=== PATIENT | female | born 1990 ===

== ENCOUNTER 2024-03-02 17:08 | Emergency (ER) | payer OTHER ==
[~2024-03-02] VITALS: Ht 188 cm; Wt 107.9 kg
[2024-03-02] MEDS ORDERED: diphenhydrAMINE HCL 50 MG/ML VIAL IM ONE (17:45)
[2024-03-02] MEDS ORDERED: HALOPERIDOL LACTATE 5 MG/ML VIAL IM ONE (17:45)
[2024-03-02] MEDS ORDERED: LORazepam 2 MG/ML VIAL IM ONE (17:45)
[2024-03-02 18:10] LABS: BASOPHILS 0.6 % (0-2); EOSINOPHILS 0.9 % (0-6); HEMATOCRIT 39.7 % (35.0-50.0); HEMOGLOBIN 12.8 g/dL (12.0-18.0); LYMPHOCYTES 20.8 % (24-44); MCH 29.2 (27-36); MCHC 32.2 g/dl (30-36); MCV 90.7 fl (81-99); MONOCYTES 7.1 % (0-12); NEUTROPHILS 70.6 % (39-80); PLATELET COUNT 326 K/uL (140-440); RBC 4.38 M/ul (4.3-5.7); RDW 14.1 (10.5-15.0)
[2024-03-02 18:33] LABS: ACETAMINOPHEN 0 ug/mL (10-30); ALBUMIN 3.6 g/dL (3.4-5.0); ALBUMIN/GLOBULIN RATIO 0.92 (1.1-2.4); ALCOHOL, MEDICAL <3 ng/dL (<3); ALKALINE PHOSPHATASE 70 U/L (46-116); ALT (SGPT) 36 U/L (14-59); ANION GAP 15.1 (7-21); AST (SGOT) 24 U/L (15-37); BILIRUBIN, TOTAL 0.5 ng/dL (0.2-1.0); BUN/CREATININE RATIO 11.71 (6.0-28.6); CALCIUM 8.9 mg/dL (8.5-10.1); CARBON DIOXIDE 24 mmol/L (21-32); CHLORIDE 106 mmol/L (98-107); CREATININE, SERUM 1.11 mg/dL (0.55-1.02); GLOMERULAR FILTRATION RATE,EST 67 mL/min (>60); POTASSIUM 3.1 mmol/L (3.5-5.1); PROTEIN, TOTAL 7.5 g/dL (6.4-8.2); SALICYLATE 0.9 mg/dL (2.8-20.0); TSH, 3RD GENERATION 0.642 uIU/mL (0.358-3.740); UREA NITROGEN 13 mg/dL (7-18)
[2024-03-02] MEDS ORDERED: POTASSIUM CHLORIDE 10 MEQ TABCR PO ONE (19:00)
[2024-03-03] MEDS ORDERED: POTASSIUM CHLORIDE 10 MEQ TABCR PO ONE (00:15)
[2024-03-03 00:40] LABS: BILIRUBIN, URINE NEGATIVE (negative); BLOOD/HGB, URINE MODERATE (Negative); KETONE, URINE SMALL (Negative); LEUK ESTERASE, URINE LARGE (negative); NITRITE, URINE NEGATIVE (negative)
[2024-03-03 00:49] LABS: BACTERIA, URINE 1+ /hpf (negative); CASTS, URINE NONE SEEN \\lpf; CRYSTALS, URINE NONE SEEN (0-1+); EPITHELIAL CELLS, URINE SQUAMOUS 3+ /lpf (0-1+)
[2024-03-03 00:50] LABS: COLLECTION TYPE, URINE CLEAN CATCH; REFLEX CULTURE, URINE No (No)
[2024-03-03 00:59] LABS: AMPHETAMINES, URINE NEGATIVE (NEGATIVE); BARBITURATES, URINE NEGATIVE (NEGATIVE); BENZODIAZEPINE, URINE NEGATIVE (NEGATIVE); BUPRENORPHINE, URINE NEGATIVE (NEGATIVE); CANNABINOID, URINE NEGATIVE (NEGATIVE); COCAINE, URINE NEGATIVE (NEGATIVE); ECSTASY, URINE NEGATIVE (NEGATIVE); FENTANYL, URINE NEGATIVE (NEGATIVE); METHADONE, URINE NEGATIVE (NEGATIVE); OPIATES, URINE NEGATIVE (NEGATIVE); OXYCODONE, URINE NEGATIVE (NEGATIVE); PHENCYCLIDINE, URINE NEGATIVE (NEGATIVE)
[2024-03-03] MEDS ORDERED: OLANZapine 10 MG VIAL IM ONE (11:00)
[2024-03-03] MEDS ORDERED: LORazepam 2 MG/ML VIAL IM ONE ×2 (11:00→19:30)
[2024-03-03] MEDS ORDERED: SODIUM CHLORIDE 0.9% 1,000 ML IV ONE (11:45)
[2024-03-03] MEDS ORDERED: POTASSIUM CHLORIDE 10 MEQ/100 ML BAG IV SCH (12:00)
[2024-03-03] MEDS ORDERED: diphenhydrAMINE HCL 50 MG/ML VIAL IM ONE (19:30)
[2024-03-03] MEDS ORDERED: HALOPERIDOL LACTATE 5 MG/ML VIAL IM ONE (19:30)
[2024-03-04] MEDS ORDERED: DIVALPROEX SODIUM 250 MG TABEC PO SCH (09:00)
[2024-03-04] MEDS ORDERED: ziprasidone HCL 40 MG CAP PO SCH (09:00)
[2024-03-04] MEDS ORDERED: HALOPERIDOL LACTATE 5 MG/ML VIAL IM ONE (21:00)
[2024-03-04] MEDS ORDERED: LORazepam 2 MG/ML VIAL IM ONE (21:00)
[2024-03-04] MEDS ORDERED: diphenhydrAMINE HCL 50 MG/ML VIAL IM ONE (21:00)
[2024-03-05] MEDS ORDERED: DIVALPROEX SODIUM 250 MG TABEC PO SCH (06:30)
[2024-03-05] MEDS ORDERED: ziprasidone HCL 40 MG CAP PO SCH (06:30)
[2024-03-06 13:46] VITALS: BP 149/98
== END 2024-03-06 13:47 | disposition other institution, planned readmission (95) ==
LOC: ED 17:08
PROVIDERS: Family Medicine
DX: F31.60 Bipolar disorder, current episode mixed, unspecified (principal)
CPT/HCPCS: 36415; 80053; 80307; 81001; 84443; 84703; 85025; G0480; J1200; J1630; J2060; J3480; J7030

== ENCOUNTER 2024-03-06 18:10 | Emergency (ER) | payer OTHER ==
[~2024-03-06] VITALS: Ht 188 cm; Wt 103.0 kg
--- OUTSIDE RECORDS SUMMARY | 2024-03-06 18:16 | XMS ---
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 Lidia has no Care Guidelines for this patient. [facility] (12 MO.) [facility] NOTE: Visits indicate total known visits. ED/[facility] VISIT TRACKING (12 MO.) [facility] 18[facility]10 [facility] COMPLAINT: - MEDICAL CLEARANCE 03/02/2024 17:09 [facility] TYPE: Emergency COMPLAINT: - MENTAL HEALTH DIAGNOSES: - Bipolar disorder, current episode mixed, unspecified INPATIENT VISIT TRACKING (12 MO.) No inpatient visits to display in this time frame [email or web address]
[2024-03-06] MEDS ORDERED: ziprasidone HCL 40 MG CAP PO SCH (21:00)
[2024-03-06] MEDS ORDERED: DIVALPROEX SODIUM 250 MG TABEC PO SCH (21:00)
[2024-03-06] MEDS ORDERED: ZOLPIDEM TARTRATE 5 MG TAB PO ONE (23:15)
[2024-03-06] MEDS ORDERED: diphenhydrAMINE HCL 50 MG/ML VIAL IM ONE (23:45)
[2024-03-06] MEDS ORDERED: HALOPERIDOL LACTATE 5 MG/ML VIAL IM ONE (23:45)
[2024-03-06] MEDS ORDERED: LORazepam 2 MG/ML VIAL IM ONE (23:45)
[2024-03-08] MEDS ORDERED: LORazepam 1 MG TAB PO ONE (22:00)
[2024-03-09] MEDS ORDERED: LORazepam 2 MG/ML VIAL IM ONE (00:45)
[2024-03-09 07:07] VITALS: BP 144/68
== END 2024-03-09 07:09 ==
LOC: ED 18:10
DX: F31.9 Bipolar disorder, unspecified (principal)
CPT/HCPCS: A9270-GY; J1200; J1630; J2060